=== PATIENT | female | born 1965 | race Caucasian/White ===

== ENCOUNTER → 2018-08-02 | Outpatient (CLI) | payer BC ==
[~2018-08-02] MED LIST: NORCO 5-325 TA1 EACH PO
== END ==
LOC: MRI 08-01 09:03
DX: C50.912 Malignant neoplasm of unspecified site of left female breast (principal); R92.2 Inconclusive mammogram; N60.01 Solitary cyst of right breast; R59.9 Enlarged lymph nodes, unspecified

== ENCOUNTER 2018-08-12 05:28 | Day surgery (SDC) | payer BC ==
[~2018-08-12] VITALS: Ht 162.6 cm; Wt 72.1 kg
[~2018-08-12 05:28] MED LIST changes: +CELEXA20 MG PO; +OMEPRAZOLE 20 M20 M1 PO; +TRAMADOL 50 MG50 MG PO; +ZANAFLEX4 MG PO
[2018-08-12 07:58] VITALS: BP 130/80
[2018-08-12] MEDS ORDERED: NORCO 7.5-3251 EACH PO (09:45)
[2018-08-12 10:07] VITALS: BP 130/80
--- NOTE | 2018-08-23 12:05 | PATH ---
[facility] [address] [place] [address] PATHOLOGY RPT PROCEDURE Name: AIMEDESIREELuiz AYALA Room #: DEP [facility] M.R.#: [id number] ������������������ Admission: 08/12/18 ������������������ Date of : 61 Discharge: 08/12/18 Report #: [id number] Path Case #: [id number] [facility] Accession Number: [id number] . 01 Material submitted: . axilla - LT AXILLA. Modifiers: left . 01 Clinical history: . Suspicious axillary node . 02 Diagnosis: Lymph node, axilla (suspicious node), needle core biopsy: - POSITIVE FOR MALIGNANCY; CONSISTENT WITH METASTATIC CARCINOMA (PLEASE SEE COMMENT). - No definite extracapsular extension identified. (IUV:pily; 08/13/2018) MBR/08/13/2018 . 02 Comment: Examination shows a gland forming malignancy, consistent with an adenocarcinoma. Background lymphoid tissue is present consistent with sampling of a lymph node. Definite extracapsular extension is not identified. Previous history of left breast mass with invasive carcinoma is noted ([id number]). The case is discussed with Dr. Neno Limon in the morning of 08/13/18 at which time he notified that the breast mass was ER and AL negative, as well as HER2/bia positive. There are no slides available for morphological comparison at our institution (case sent to [facility] upon request). The case is discussed with Dr. Francisco Leon as well at 12:57 p.m. on 08/13/18. Block A2 is sent for ER, AL, and HER2/bia subsequent to the discussion. Please refer to a separate addendum to follow upon receipt. . Co-review: Dr. Kianna Menjivar (slide A2-level 5). . (IUV:precision grinder external; 08/13/2018) . 02 Addendum: . Special studies report received from [facility], [address] [place] [address], [address], [place], [address], on case [id number], labeled with their number [id number], dated 08/22/2018. . Breast/Prognostic Marker Analysis . Specimen Site: Lt Axilla Lymph Node, Metastatic Carcinoma (Biopsy) Specimen ID #: [id number] . ER (Estrogen Receptor) [address] [address] PATHOLOGY RPT PROCEDURE Name: DESIREE GAINES Room #: DEP [facility] M.Urban#: [id number] ������������������ Admission: 08/12/18 ������������������ Date of : 61 Discharge: 08/12/18 Report #: [id number] Path Case #: [id number] Absent/Negative Percent: 0.50% Analysis: Manual Comments: Staining intensity: Weak . AL (Progesterone Receptor) Absent/Negative Percent: 0.00 Analysis: Manual Comments: Adequate external positive control is noted. Internal positive control not seen but tissue is adequate for evaluation. . HER2 Over-Expressed Score: 3+ Analysis: Manual . Time to Fixation (Cold Ischemic Time): Not Provided Duration of Fixation: Not Provided Type of Fixative: 10% Neutral Buffered Formalin . at [facility]. Nichole Espinoza M.D. Pathologist . Methodology The HER2 Receptor protein expression is analyzed using the Shafer HER2 rabbit monoclonal antibody (clone [id number]). This assay is used for diagnostic determination of the HER2 protein over-expression in paraffin embedded, formalin fixed breast cancer tissue on the [employer] ([employer] Benchmark. The specimen is processed using a polymer detection system. The membrane staining of the tumor is determined either by manual score or image analysis. This antibody is intended for in vitro diagnostic use. The score is reported as per package insert; 0, 1+, 2+, and 3+. This test is used for clinical purposes. . A rabbit monoclonal antibody (clone SP1) that recognized the Estrogen Receptor is used to perform immunohistochemistry on routinely fixed (formalin) paraffin embedded tissue on the Shafer Benchmark. The specimen is processed using a polymer detection system. The percentage of stained tumor nuclei is determined either manually or by image analysis. This test is intended for in vitro diagnostic use. This test is used for clinical purposes. . A rabbit monoclonal antibody (clone 1E2) that recognized the Progesterone Receptor is used to perform immunohistochemistry on routinely fixed (formalin) paraffin embedded tissue on the [employer]fer Benchmark. The specimen [address] [address] PATHOLOGY RPT PROCEDURE Name: DESIREE GAINES Room #: DEP [facility]#: [id number] ������������������ Admission: 08/12/18 ������������������ Date of : 61 Discharge: 08/12/18 Report #: [id number] Path Case #: [id number] is processed using a polymer detection system. The percentage of stained tumor nuclei is determined either manually or by image analysis. This test is intended for in vitro diagnostic use. This test is used for clinical purposes. . Intended Use: This antibody is intended for in vitro diagnostic (IVD) use. HER2 (4B5) is a rabbit monoclonal antibody intended for the semi-quantitative detection of HER2 antigen in sections of formalin-fixed, paraffin embedded normal and neoplastic tissue. . This antibody is intended for in vitro diagnostic (IVD) use. Estrogen Receptor (ER) (SP1) is a rabbit monoclonal antibody (IgG) that is intended for the qualitative detection of estrogen receptor (ER) antigen in sections of formalin-fixed, paraffin-embedded tissue. ER is a rabbit monoclonal antibody that recognizes human estrogen receptor alpha. . This antibody is intended for in vitro diagnostic (IVD) use. Progesterone Receptor (AL) (1E2) is a rabbit monoclonal antibody (IgG) that is intended for the qualitative detection of progesterone receptor (AL) antigen in sections of formalin fixed, paraffin embedded tissue. AL is a rabbit monoclonal antibody that recognizes the A and B forms of the human progesterone receptor. . . Disclaimer: This Test was performed by [facility]. at [address], [address]. . [facility] is a business unit of [employer]. a wholly-owned subsidiary of [employer]. . This assay has not been validated on decalcified tissues. Results should be interpreted with caution if this specimen was decalcified given the likelihood of false negativity on decalcified specimens. . Any image(s) that accompany this report is/are a sales support representative image(s) only and should not be used to render a diagnosis. . This interpretation is contingent on the specimen and the clinical information received. . For any special tests/stains performed, known positive cells or tissues are tested with each marker and examined to ensure positivity. Positive and negative internal controls, if present, react appropriately. . This analysis is an adjunct to the evaluation of the referring physician [address] [address] PATHOLOGY RPT PROCEDURE Name: AIMEDESIREE LUCY Room #: DEP [facility] M.R.#: [id number] ������������������ Admission: 08/12/18 ������������������ Date of : 61 Discharge: 08/12/18 Report #: [id number] Path Case #: [id number] and does not represent a final diagnosis. . The immunohistochemistry tests performed at [facility]. were validated on tissue fixed in 10% neutral buffered formalin. The performance characteristics of the tests performed on tissue processed in other fixatives is not known. . HER2 testing at [facility] is performed in compliance with the 2018 updated ASCO/CAP Clinical Practice Guideline Focused Update. If the result is EQUIVOCAL (2+), it must be confirmed by an alternative assay such as FISH or Dual SONA. REF: Joyce LEDBETTER, RAYMON Acuna et al: Human Epidermal Growth Factor Receptor 2 Testing in Breast Cancer: ASCO/CAP Clinical Practice Guideline Focused Update. J Clin Oncol 36:3007-0756, 2018. . HER2 and ER/AL ASCO/CAP guidelines require fixation in neutral buffered formalin for a minimum of 6 and a maximum of 72 hours. Fixation times less than 6 hours may not adequately preserve cell proteins. Fixation times longer than 72 hours may cause excess cross-linking of proteins reducing the antigen available for staining. Either scenario can cause reduced staining; hence false negative results are possible and should be considered for these situations if the HER2 IHC score is less than 3+ or ER or AL is negative (no staining or <1% positive). It is recommended that specimens fixed longer than 72 hours with HER2 IHC scores less than 3+ be confirmed by HER2 FISH or Dual SONA. The time from biopsy/excision to fixation in formalin (cold ischemic time) must be less than 1 hour. Time to fixation (cold ischemic time) greater than 1 hour should be interpreted with caution. HER2 testing, mainly HER2 by FISH, is particularly vulnerable since excessive cold ischemic time results in preferential loss of HER2 probe signals that may lead to false negative results. . SCORE STAINING PATTERN IN TUMOR CELLS INTERPRETATION RESULTS 0 No staining observed or incomplete, faint membrane staining in less than or equal to 10% of tumor cells. Negative 1+ Incomplete, faint membrane staining in greater than 10% of tumor cells. Negative 2+ Weak to moderate complete membrane staining observed in greater than 10% of tumor cells. Equivocal* *Must be confirmed by alternative assay (IHC/FISH/Dual SONA) 3+ Intense, complete membrane staining in greater than 10% of tumor cells. Positive [facility] [address] [place] [address] PATHOLOGY RPT PROCEDURE Name: DESIREE GAINES LUCY Room #: DEP [facility] Giselle#: [id number] ������������������ Admission: 08/12/18 ������������������ Date of : 61 Discharge: 08/12/18 Report #: [id number] Path Case #: [id number] . A complete copy of the report is on file. . Professional and Technical services performed by [facility]. at [address], [place] [address]. . (AMJ 08/22/2018) LBQ/08/22/2018 Addendum Electronically Signed by Reva Randhawa MD, Pathologist . 02 Electronically signed: . Reva Randhawa MD, Pathologist NPI- [id number] . 01 Gross description: . The specimen is received in formalin, labeled "Desiree Aime, left axilla". Received are two needle cores of pale jameson soft tissue ranging in length from 1.3 to 1.4 cm in length by 0.1 cm in diameter. The specimen is submitted entirely in cassette A1 and A2. A portion of the specimen is received in RPMI solution and is forwarded on for flow cytometry studies. (CAA; 08/12/2018) QAC/QAC . 02 Pathologist provided ICD-10: C77.3, Z85.3 . 02 CPT . 358359 Specimen Comment: A courtesy copy of this report has been sent to Specimen Comment: [phone], . Specimen Comment: Report sent to / DR TUCKER Performed at: [address], [place], [place] [id number] MD Marquis Lee MD Phone: [phone] Performed at: [address] [id number] MD Reva Randhawa MD Phone: [phone]
--- NOTE | 2018-09-26 17:32 | O ---
[facility] [place] [address] OPERATIVE REPORT Name: HELADIO GAINES Room #: DEP [facility]..#: [id number] Admission: 08/12/18 ������������������ Attend Phys: Neno Limon MD Discharge: 08/12/18 ������������������ Date of : 61 Report #: [id number] THIS REPORT FOR: //name// CC: DR GARRETT Costa DATE OF SERVICE: 08/12/2018 PREOPERATIVE DIAGNOSIS: Recently diagnosed left breast cancer, advanced stage and HER2 positive. POSTOPERATIVE DIAGNOSIS: Recently diagnosed left breast cancer, advanced stage and HER2 positive. PROCEDURE PERFORMED: Port-A-Cath placement via subclavian vein approach. COMPLICATIONS: None. ESTIMATED BLOOD LOSS: 5 mL. SURGEON: Neno Limon M.D. DESCRIPTION OF PROCEDURE: With the patient under IV sedation, IV antibiotic was administered. The right chest and neck were prepped and draped in sterile fashion. Timeout was performed. A 0.25% Marcaine was used to anesthetize the skin and subcutaneous tissue. The patient tolerated the injection well. A 2.5 cm incision was made underneath the right clavicle. The pocket for the port was created with cautery without difficulty right above the pectoralis fascia. The pocket was big enough for the port. This was tested out. With the patient then placed in the Trendelenburg position, the subclavian vein was cannulated without difficulty on the first pass. Wire was threaded through the needle without resistance. On fluoroscopy, the wire was going down to the right direction of the inferior vena cava. The patient was then flattened out. She was taken out of the Trendelenburg position. The port was then fitted to the catheter at 17.5 cm length. The supplied locking plastic piece was used to seal the catheter on the port. The port catheter was then flushed with heparinized saline. Dilator was then placed over the wire. The Peel-Apart sheath was then placed over the dilator. The dilator and the Peel-Apart sheath was placed over the wire. The dilator and wire were removed. When I put the catheter in, there is some resistance rounding the clavicle. This was then dilated with the dilator without difficulty. The catheter was then able to be threaded beyond this point. The Peel-Apart sheath was peeled apart leaving the catheter in the vein. The port was then placed in the pocket. Antibiotic was used to flush out the cavity, was used to flush out the port site. On fluoroscopy, the port and the [facility] [address] [place] [address] OPERATIVE REPORT Name: HELADIO GAINES Room #: DEP [facility].#: [id number] Admission: 08/12/18 ������������������ Attend Phys: Neno Limon MD Discharge: 08/12/18 ������������������ Date of : 61 Report #: [id number] catheter are in excellent position. The port was then sewn to the pectoralis fascia using 2-0 Prolene x 2. Subcutaneous tissue was closed with 3-0 PDS. Skin was closed with 5-0 PDS running subcuticular fashion. Steri-Strips applied. The port was then accessed without difficulty using the supplied Jain needle. Good blood return. The port was then flushed with heparinized saline solution. The patient tolerated the procedure well and was taken to the recovery room. Post-placement chest x-ray looks like a catheter and port are in excellent position. No pneumo seen. ��������������������������������������������� <ELECTRONICALLY SIGNED> ���������������������������������������� By: Neno Limon MD ��������������������������������������������� 09/26/18 1732 1251 1321 Neno Limon MD /nt
== END 2018-08-12 15:00 | disposition home or self-care (01) ==
LOC: TBA 05:28 → OR 05:28 → TBA 05:29 → OR 10:02
DX: Z45.2 Encounter for adjustment and management of vascular access device (principal); C50.912 Malignant neoplasm of unspecified site of left female breast; C77.3 Secondary and unspecified malignant neoplasm of axilla and upper limb lymph nodes; J45.998 Other asthma; F32.9 Major depressive disorder, single episode, unspecified; G47.30 Sleep apnea, unspecified; K21.9 Gastro-esophageal reflux disease without esophagitis; F17.210 Nicotine dependence, cigarettes, uncomplicated; Z17.0 Estrogen receptor positive status [ER+]; Z90.49 Acquired absence of other specified parts of digestive tract; Z98.890 Other specified postprocedural states; Z79.899 Other long term (current) drug therapy; Z88.0 Allergy status to penicillin; Z88.2 Allergy status to sulfonamides; Z88.8 Allergy status to other drugs, medicaments and biological substances; Z79.891 Long term (current) use of opiate analgesic
CPT/HCPCS: 50010; 50101; 50386; 50403; 51938; 56524; 56525; 62110; 62900; 70005

== ENCOUNTER 2019-01-09 06:53 | Observation (INO) | payer BC ==
[~2019-01-09] VITALS: Ht 167.6 cm; Wt 74.4 kg
[~2019-01-09 06:53] MED LIST changes: +ACYCLOVIR 800800 MG PO; +HYDROCODON-ACE1 EAC5 PO; +NORCO 7.5-3251 EACH PO; +OMEPRAZOLE40 MG PO
[2019-01-09 10:09] VITALS: BP 137/69
[2019-01-09 19:19] VITALS: BP 146/79
--- NOTE | 2019-01-09 20:00 | NUR ---
PATIENT ADMITTED FROM OR, BILATERAL MODIFIED RADICAL MASTECTOMY/DR OSBORNE. UP WITH ASSIST TO BATHROOM X 4. NO C/O NAUSEA THIS SHIFT. HEART HEALTHY DIET, TOLERATED WELL. DRESSINGS TO BILATERAL CHEST AREAS, [address], LEFT SIDE 60CC AND RIGHT SIDE 35CC. LIMB ALERT ON LEFT SIDE, LYMPH NODESD REMOVED. PATIENT HAS 2 IVS RIGHT WRIST AND RIGHT FOREARM, WITH D51/2 NS WITH 20 KCL AT 80CC/HR. PATIENT C/O PAIN /, RECEIVED FENTANYL 50MCG X 3 TIMES THIS ASHIFT. ADMISSION COMPLETED, BUT CAREPLAN WILL BE DONE BY EMILIE/RN. O2 AT 2 LITERS/NC UPON ARRIVAL TO THE UNIT, BUT REMOVED, NO SOB, SATS 100%. WILL CONTINUE TO MONITOR.
[2019-01-10 00:07] VITALS: BP 137/71
[2019-01-10 04:50] VITALS: BP 141/64
[2019-01-10 05:51] LABS: HEMATOCRIT 32.5 % (37.0-47.0); HEMOGLOBIN 10.9 gm/dL (12.0-15.0); MCH 35.9 pg (26.0-34.0); MCHC 33.5 g/dL (28.0-37.0); MCV 107.3 fL (80.0-100.0); RBC 3.02 mil/uL (4.20-5.00); RDW 14.5 % (10.5-14.5); WBC 8.2 thou/uL (4.0-11.0)
[2019-01-10 06:05] LABS: CALCIUM 8.7 mg/dL (8.5-10.1); CREATININE 0.5 mg/dL (0.6-1.0); POTASSIUM 3.9 mmol/L (3.5-5.1)
--- NOTE | 2019-01-10 06:07 | NUR ---
ASSUMED CARE OF PT @1900 PT ASSESSED AT START OF SHIFT. A&OX4 WITH C/O OF PAIN. PAIN MEDS GIVEN SEE EMAR. ANETA ART INTACT IN BOTH UPPER EXTREMITES. DTR AT BEDSIDE FOR THE NIGHT. PT UP WITH ASSIT TO THE BR. CARE PLANS UPDATED IV INTACT AND FLUIDS INFUSING. FALL PREC IN PLACE AND CALL LIGHT WITHIN REACH WILL CONT WITH POC TILL EOS.
[2019-01-10 07:45] VITALS: BP 132/72
[2019-01-10] MEDS ORDERED: HYDROCODON-ACE1 EAC5 PO (09:49)
--- NOTE | 2019-01-10 10:28 | NUR ---
ASSESSMENT-PT LIVES AT HOME AND HAS 3 KIDS AND XIANG THAT CAN ASSIST HER. PRIOR TO SURGERY PT WAS INDEPENDENT OF ADLS AND AMBULATION. LAYNDRY LOCATED DOWN 12 STEPS IN BASEMENT BUT KIDS OR XIANG CAN DO THIS. NURSING TO TEACH PT HOW TO EMPTY ANETA DRAINS AND TO RECORD OUTPUT ON BOTH DRAINS FOR DR OSBORNE. PT/FAMILY IDENTIFY NO DC NEEDS AT THIS TIME. FOLLOWING TO ASSIST WITH DC PLANNING.
[2019-01-10 11:59] VITALS: BP 132/72
--- NOTE | 2019-01-10 12:21 | EKG ---
[address] [address] ELECTROCARDIOGRAM REPORT Name: HELADIO GAINES Room #: 438-P [facility]..#: [id number] Admission: 01/09/19 Attend Phys: Neno Limon MD Discharge: Date of : 61 Report #: [id number] THIS REPORT FOR: //name// [facility] Test Date: 2019-01-09 Test Time: 07:16:58 Pat Name: HELADIO GAINES Department: Room: [facility] Gender: F Fur Machine Operator: Monique : 1965 Requested By: Neno Limon Order Number: [id number] MD: Edgardo Cowart Measurements Intervals [place] Rate: 75 P: 80 CA: 151 QRS: 63 QRSD: 93 T: 48 QT: 415 QTc: 464 Interpretive Statements Sinus rhythm Consider right atrial enlargement No previous ECG available for comparison Electronically Signed On 01-10-2019 12:21:09 MANAGER OF TRAINING by Edgardo Cowart [email or web address] <ELECTRONICALLY SIGNED> By: Edgardo Cowart MD 01/10/19 1221 0716 0716 Edgardo Cowart MD /EPI
--- NOTE | 2019-01-10 13:25 | NUR ---
ASSUMED CARE OF PATIENT AT 0715, PATIENT C/O PAIN WITH LEFT UPPER ARM, HYDROCODONE 1 TABLET GIVEN, WITH GOOD RELIEF. PATIENT HAS RIGHT WRIST IV AND RIGHT FOREARM IV WITH D51/2 NS WITH 20 KCL AT 80CC/HR. PATIENT RECEIVED 1 IV ANTIBIOTIC/LEVOFLOXACIN. PATIENT HAS BILATERAL BREAST DRESSING IN PLACE, C/D/I, WITH [address]. THIS RN INSTRUCTED THE PATIENT AND HER FRIEND ON HOW TO EMPTY ANETA DRAINS, THEY BOTH VERBALIZE UNDERSTANDING, LEFT SIDE ANETA DRAIN EMPTIED 30CC AND RIGHT SIDE ANETA DRAIN 10CC. BOTH IV'S DISCONTINUED PRIOR TO DISCHARGE. THIS RN WENT OVER ALL DISCHARGE PAPERWORK AND ALL PERSONAL BELONGINGS SENT WITH THE PATIENT. DAUGHTER AT BEDSIDE FOR TRANSPORT TO HOME.
--- NOTE | 2019-01-16 16:06 | PATH ---
[facility] [place] [address] PATHOLOGY RPT PROCEDURE Name: DESIREE SALOMON Room #: 438-P [facility] Eugenia M.RАлександр#: [id number] Admission: 01/09/19 Date of : 61 Discharge: 01/10/19 Report #: [id number] Path Case #: [id number] [facility] Accession Number: [id number] . 01 Material submitted: . PART A: breast - LEFT BREAST TISSUE, SHORT STITCH SUPERIOR, LONG STITCH LATERAL. Modifiers: left PART B: lymph node - LEFT HIGH AXILLARY NODE. Modifiers: left PART C: breast - RIGHT BREAST TISSUE. Modifiers: right . 01 Clinical history: . Malignant neoplasm of breast unspecified site, female . 02 Diagnosis: A. Breast, left breast tissue, modified radical mastectomy: - No residual neoplasm present (entire upper central quadrant submitted for microscopic examination) (y pT0). - Background breast tissue showing fibroadenomatoid changes, stromal fibrosis, adenosis, marked dilated ducts along with usual ductal hyperplasia and scattered coarse calcifications. - Skin and nipple with reactive changes; negative for malignancy. - Seventeen reactive lymph nodes (one with previous biopsy site changes identified at marked area); negative for malignancy (0/17). . B. Lymph node (one), left high axillary lymph node, biopsy: - Reactive lymph node; negative for malignancy (0/1). . C. Breast, right breast, modified radical mastectomy: - Proliferative fibrocystic changes with dilated ducts, stromal fibrosis, as well as focal adenosis. - Negative for hyperplasia, atypia or malignancy. - Skin and nipple with reactive changes; negative for malignancy. - 11.0 cm of attached axillary tail showing predominantly fatty tissue (please see comment). (IUV:pit; 01/15/2019) . Surgical Pathology Cancer Case Summary . Protocol posting date: March 2017 . INVASIVE CARCINOMA OF THE BREAST: . . Specimen Identification Procedure ___ Modified Radical Mastectomy . Specimen Laterality [address] [address] PATHOLOGY RPT PROCEDURE Name: DESIREE SALOMON Room #: 438-P [facility] Eugenia Desai#: [id number] Admission: 01/09/19 Date of : 61 Discharge: 01/10/19 Report #: [id number] Path Case #: [id number] ___ Left . Tumor Site: Invasive Carcinoma ___ Position (specify): 12 o'clock . Tumor Size ___ No residual invasive carcinoma . Histologic Type ___ No residual invasive carcinoma . Histologic Grade (Charlie Histologic Score) ___ No residual invasive carcinoma . Tumor Focality ___ Cannot be determined . Ductal Carcinoma In Situ (DCIS) ___ Not identified . Tumor Extension Skin ___ None . Nipple ___ None . Margins . Invasive Carcinoma Margins (required only if residual invasive carcinoma is present in specimen) ___ Cannot be assessed; no residual carcinoma . DCIS Margins (required only if DCIS is present in specimen) ___ Cannot be assessed; no residual DCIS . Regional Lymph Nodes . ___ Uninvolved by tumor cells Number of Lymph Nodes Examined: 18 . Treatment Effect . Treatment Effect in the Breast ___ No residual invasive carcinoma is present in the breast after presurgical therapy . Treatment Effect in the Lymph Nodes [address] [address] PATHOLOGY RPT PROCEDURE Name: LIANADESIREE LUCY Room #: 438-P [facility] Eugenia АлександрАлександр#: [id number] Admission: 01/09/19 Date of : 61 Discharge: 01/10/19 Report #: [id number] Path Case #: [id number] ___ No lymph node metastases. Fibrous scarring, possibly related to prior lymph node metastases with pathologic complete response . Lymphovascular Invasion ___ Not identified . Dermal Lymphovascular Invasion ___ Not identified . Pathologic Stage Classification (pTNM, AJCC 8th Edition) Note: Reporting of pT, pN, and (when applicable) pM categories is based on information available to the pathologist at the time the report is issued. . TNM Descriptors (required only if applicable) (select all that apply) ___ y (posttreatment) . Primary Tumor (Invasive Carcinoma) (pT) ___ pT0: No evidence of primary tumor . Category (pN) ___ pN0: No regional lymph node metastasis identified . Clinical History ___ Prior presurgical (neoadjuvant) therapy for this diagnosis of invasive carcinoma QMS 01/15/2019 1741 Local . 02 Comment: The original biopsy which showed an invasive moderately differentiated ductal adenocarcinoma, Charlie grade II, was sampled at [facility] ([id number]; please see separate report for details). That tumor was negative for ER, AR, over expressed HER-2/JESENIA and showed a Ki-67 proliferation rate of 37.77%. Subsequently a left axillary lymph node was sampled which was positive for metastatic carcinoma ([id number]; please see separate report for details). That lymph node was also submitted for breast prognostic marker analysis and it was negative for ER and AR. It overexpressed HER-2/JESENIA. The entire upper central quadrant is submitted for microscopic examination and it shows no residual tumor. Therapy related reparative changes are identified. Properly controlled immunohistochemical stains are performed on blocks A8 and A11 and are interpreted as follows: AE1/AE3 on block A8 and A11 - no reactivity identified within the therapy related changes identified consistent with no residual invasive carcinoma. CD68 performed on block A8 and A11 - numerous macrophages present within therapy related changes consistent with reactive/reparative changes. . Both the original biopsies have been retrieved for morphologic comparison [facility] [address] [place] [address] PATHOLOGY RPT PROCEDURE Name: LIANADESIREELuiz AYALA Room #: 438-P [facility] Eugenia Desai#: [id number] Admission: 01/09/19 Date of : 61 Discharge: 01/10/19 Report #: [id number] Path Case #: [id number] and no residual tumor is identified. . The axillary fat from the right modified radical mastectomy is submitted/placed in dissect aid to identify any microscopic lymph nodes. An addendum will be issued subsequent to reviewing the same. (IUV:pit; 01/15/2019) . 02 Addendum: . ADDITIONAL GROSS DESCRIPTION . C. After initial microscopic examination, the axillary tail of the right breast is placed into a lymph node enhancement solution overnight. Upon 24 hours of exposure to a lymph node enhancement solution, extensive dissection and palpation of the axillary tail reveals no identifiable lymph nodes. (CAA; 01/15/2019) QTP/01/16/2019 Addendum Electronically Signed by Reva Randhawa MD, Pathologist . 02 Electronically signed: . Reva Randhawa MD, Pathologist NPI- [id number] . 01 Gross description: . A. The specimen is received in formalin, labeled "Desiree Salomon, left breast tissue". Received is a 467 g mastectomy specimen oriented with a short suture designating the superior margin and a long suture designating the lateral margin. The specimen measures 19.7 cm from medial to lateral, 18.5 cm from superior to inferior, and 3.0 cm from anterior to posterior. The anterior aspect of the specimen displays an attached ellipse of skin measuring 8.5 x 5.0 cm with an eccentrically located everted nipple and areola complex, measuring 1.0 x 0.8 and 3.0 x 2.8 cm, respectively. There is an attached axillary tail measuring 14.2 x 4.0 x 1.4 cm. The specimen is inked as follows: Superior/anterior-blue, inferior/anterior-green, posterior-black, medial skin tip-orange, lateral skin tip-yellow. Sectioning reveals bright yellow, lobulated to white, fibrous cut surfaces, with the fibrous tissue encompassing approximately 20% of the specimen and is located in the upper inner and lower inner quadrants. This fibrous tissue extends 1.2 cm lateral to the 12:00 margin, 3.8 cm medial to the 12:00 margin, and 5.8 cm inferior to the 12:00 margin. No distinct nodules or lesions are noted grossly. Dissection and palpation of the axillary tail reveals 16 readily identifiable lymph nodes ranging in size from 0.3 to 1.8 cm. There is a slight amount of blue ink on the axillary tail designating a specific lymph node. . Also received within the specimen container is a segment of yellow-jameson fibroadipose tissue measuring 2.3 x 1.2 x 0.8 cm with an attached staple. Sectioning reveals a single lymph node measuring 1.4 cm in maximum [address] [address] PATHOLOGY RPT PROCEDURE Name: DESIREE SALOMON Room #: 438-P [facility] Eugenia Desai#: [id number] Admission: 01/09/19 Date of : 61 Discharge: 01/10/19 Report #: [id number] Path Case #: [id number] dimensions. . A1 perpendicular section through nipple A2-A12 most lateral aspect of central upper quadrant (approximate 1:00 aspect) from most superior aspect down to the nipple/areolar complex, with some sections bisected and trisected A13-A24 slice medial to slice submitted in cassettes A2 through A12 of central upper quadrant from most superior aspect down to the nipple/areolar complex, with some sections bisected and trisected A25-A36 slice medial to slice submitted in cassettes A13 through A24 of central upper quadrant (approximate 12:00 aspect) from most superior aspect down to nipple/areolar complex, with some sections bisected and trisected A37-A48 slice medial to slice submitted in cassettes A25 through A26 of central upper quadrant (approximate 12:00 aspect) from most superior aspect down to nipple/areolar complex, with some sections bisected and trisected A49-A58 slice medial to slice submitted in cassettes A37 through A48 of central upper quadrant from most superior aspect down to nipple/areolar complex, with some sections bisected and trisected A59-A68 most medial aspect of central upper quadrant (approximate 11:00 aspect) from most superior aspect down to the nipple/areolar complex, with some sections bisected and trisected A69 upper inner quadrant A70 lower inner quadrant A71 lower outer quadrant A72 upper outer quadrant A73 lymph node designated by ink and axillary tail, bisected A74-A75 intact lymph nodes from axillary tail A76-A77 two bisected lymph nodes from axillary tail in each cassette, one of which is differentially inked A78-A79 one bisected lymph node from axillary tail in each cassette A80 single lymph node from separately submitted segment of fibroadipose tissue, bisected. . The cold ischemic time is 18 minutes. The total formalin fixation time is 34 hours and 44 minutes. . Please see attached photographs for diagram of how sections are submitted for the central upper quadrant. . B. The specimen is received in formalin, labeled "Desiree Salomon, left high axillary node". Received are two segments of bright yellow lobulated tissue measuring 1.8 x 1.6 x 0.6 cm in aggregate dimensions. Dissection and palpation of the specimen reveals a single lymph node measuring 1.1 cm in maximum dimensions. The lymph node is bisected and entirely submitted in cassette B1. . [facility] [address] [place] [address] PATHOLOGY RPT PROCEDURE Name: DESIREE SALOMON Room #: 438-P [facility]#: [id number] Admission: 01/09/19 Date of : 61 Discharge: 01/10/19 Report #: [id number] Path Case #: [id number] C. The specimen is received in formalin, labeled "Desiree Salomon, right breast tissue". Received is a 298 g unoriented mastectomy specimen measuring 13.1 x 12.1 x 4.4 cm in greatest dimensions. The anterior aspect of the specimen displays an attached ellipse of skin measuring 9.1 x 4.2 cm with a centrally located, everted nipple and areolar complex, measuring 1.3 x 1.1 and 3.2 x 2.9 cm, respectively. There is an attached possible axillary tail measuring 11.0 x 4.9 x 2.1 cm. The specimen is inked as follows: Anterior-blue, posterior-black. The specimen is oriented using the attached possible axillary tail. Sectioning reveals bright yellow fibrofatty cut surfaces throughout, with the fibrous tissue encompassing approximately 8% of the specimen, which is located predominantly in the upper outer and lower outer quadrants. A single cystic structure is identified within the fibrous tissue measuring 0.6 cm filled with clear fluid, which is located along the junction of quadrants 1 and 2. Dissection and palpation of the attached possible axillary tail reveals bright yellow, lobulated cut surfaces with no grossly distinct lymph nodes, nodules, or lesions. The specimen is submitted representatively as follows: . C1 perpendicular section through nipple C2 entire cystic structure C3 lower outer quadrant C4 lower inner quadrant C5 upper inner quadrant C6 upper outer quadrant. . The cold ischemic time is 6 minutes. The total formalin fixation time is 34 hours and 11 minutes. (CAA; 01/10/2019) QAC/QAC 01/10/2019 1141 Local . 02 Pathologist provided ICD-10: N60.11, N60.32, N60.22, N62, N60.12, N60.31, N60.21 . 02 CPT . 398066, 277967, G71858, G17262 Specimen Comment: A courtesy copy of this report has been sent to [phone], [phone] Specimen Comment: [id number] Specimen Comment: Report sent to / DR TUCKER Performed at: [address], [place] [id number] MD Marquis Lee MD Phone: [phone] Performed at: [address] [id number] MD Reva Randhawa MD Phone: [phone]
--- NOTE | 2019-01-21 12:03 | H ---
[facility] [place] [address] [place] [address] HISTORY AND PHYSICAL Name: HELADIO GAINES Room #: 438-P [facility] Eugenia Desai#: [id number] Admission: 01/09/19 Attend Phys: Neno Limon MD Discharge: 01/10/19 Date of : 61 Report #: [id number] THIS REPORT FOR: //name// CC: Neno Costa MD PREOPERATIVE DIAGNOSIS: The patient with HER-2 positive 3-4 cm left breast adenocarcinoma with positive lymph node, who has finished a course of neoadjuvant chemotherapy, now here for bilateral mastectomy. HISTORY OF PRESENT ILLNESS: The patient is a 53-year-old who was diagnosed with breast cancer after she noticed a mass in June. The patient had a mammogram and ultrasound at [facility] in July, which was highly suspicious. The patient then underwent a biopsy. This came back with an ER and DE negative breast cancer with HER-2 positive. The patient had an MRI performed, which did estimate the tumor at 3.6 cm x 1.5 x 3.8 cm in a spiculated form. Skin and nipples were unremarkable. The patient has suspicious lymph node and the patient did undergo biopsy and the biopsy was positive. There were at least a couple of nodes that were suspicious. The patient underwent neoadjuvant chemotherapy. She will be continued on Herceptin and she is recommended to proceed with breast cancer surgery. Because of the aggressive nature of her left breast cancer, the patient has chosen to have her right breast removed in the fear of having a right breast cancer in the future. The patient is here for left modified radical mastectomy and right prophylactic mastectomy. PAST MEDICAL HISTORY: She has a history of arthritis, back pain, and decreased vision. PAST SURGICAL HISTORY: Appendectomy, performed by myself in 2016; ; history of tubal ligation. FAMILY HISTORY: Father with colon cancer. History of high blood pressure in the family. Maternal grandmother had lung cancer. Paternal grandmother had ovarian cancer. SOCIAL HISTORY: She is a . The patient smokes 1 pack a day. The patient occasionally does drink alcohol, but not very significantly. MEDICATIONS: Include Celexa, Bentyl, hydrocodone, omeprazole, Zanaflex, Ultram. ALLERGIES: INCLUDE SULFA, PENICILLIN AND MORPHINE. PHYSICAL EXAMINATION: GENERAL: The patient is a middle-aged female in no acute distress. HEENT: Pupils react to light. Extraocular muscles are intact[place] [address] HISTORY AND PHYSICAL Name: HELADIO GAINES Room #: 438-P [facility]#: [id number] Admission: 01/09/19 Attend Phys: Neno Limon MD Discharge: 01/10/19 Date of : 61 Report #: [id number] clear. NECK: Soft and supple, no JVD, no masses. LUNGS: Clear to auscultation. HEART: Regular rate and rhythm. No murmur or gallop. ABDOMEN: Soft, nondistended, nontender. BREASTS: The tumor previously identified in the medial part of the left upper outer quadrant is barely palpable. There is an area of thickening, but the tumor is very difficult to palpate as distinct mass. There is a node that is palpable in the left axilla. Right breast does not show any mass or skin changes. No axillary adenopathy on the right side. EXTREMITIES: No cyanosis, clubbing or edema. Motor and sensory exam normal. IMPRESSION: The patient is a 53-year-old with an aggressive breast cancer on her left side. This was HER-2 positive and the size is close to 4 cm. The patient has had excellent response to neoadjuvant chemotherapy. The patient is now ready to proceed with left modified radical mastectomy. Because of her aggressive tumor, the patient has decided to minimize her risk of recurrence and also having a second primary develop in the right breast by choosing right prophylactic mastectomy. The patient understands the procedure, risk of bleeding, infection, and placement of drain. The patient's recovery course is also discussed. <ELECTRONICALLY SIGNED> By: Neno Limon MD 01/21/19 1203 11 42 Neno Limon MD /nt
--- NOTE | 2019-01-21 12:03 | O ---
[facility] [place] [address] [place] [address] OPERATIVE REPORT Name: HELADIO GAINES Room #: 438-P [facility] Giselle#: [id number] Admission: 01/09/19 Attend Phys: Neno Limon MD Discharge: 01/10/19 Date of : 61 Report #: [id number] THIS REPORT FOR: //name// CC: Neno Costa DATE OF SERVICE: 01/09/2019 PREOPERATIVE DIAGNOSIS: Left breast cancer, advanced stage, status post neoadjuvant chemotherapy. POSTOPERATIVE DIAGNOSIS: Left breast cancer, advanced stage, status post neoadjuvant chemotherapy. PROCEDURES PERFORMED: 1. Left modified radical mastectomy. 2. Right total mastectomy. SURGEON: Neno Limon MD ANESTHESIA: General anesthesia. COMPLICATIONS: None. ESTIMATED BLOOD LOSS: 100 mL. PROCEDURE NOTE: With the patient under general anesthesia, timeout was performed. The patient did receive preoperative IV antibiotics. Both breasts and axilla were prepped and draped in sterile fashion. The patient's tumor is about 12:30 position 4 cm from the nipple. This is no longer palpable, but there is some thickening in this area. The skin over this was marked. An ellipse was then drawn at the central part of the breast. The ellipse included the skin that was previously drawn right over the site of the tumor. The incision was made. The dissection was carried out freeing the skin from subcutaneous tissue. The upper skin flap was then created above the superficial fascial layer of the breast, left about 4-5 mm skin flap. The dissection was carried superiorly. The patient's breasts are relatively small. The breast stopped about an inch and a half below the clavicle. The dissection carried down to the chest wall. The inferior skin flap was then created. The medial skin flap was also dissected free. Clips were applied for hemostasis. The breast was then taken off the chest wall. There was no tumor along the dissection of the edges. Once the breast was free, the axilla was identified. The pectoralis muscle was pulled medially. The blood supply to the pectoralis coming in laterally was preserved. The patient did have previously biopsy positive lymph node. The nodes are minimally palpable, nothing suspicious. The left subclavian vein was identified. The vein was followed to the chest wall, [address] [address] OPERATIVE REPORT Name: HELADIO GAINES Room #: 438-P [facility] Eugenia Desai#: [id number] Admission: 01/09/19 Attend Phys: Neno Limon MD Discharge: 01/10/19 Date of : 61 Report #: [id number] followed proximally and the highest lymph node was removed. The fatty tissue was then swept off of the axillary vein. The first venous branch to the vein was isolated, clipped x 2 proximally and 1 distally, and then divided. The second pedicle containing the thoracodorsal nerve and artery, this was preserved. The first large intercostal nerve branch was safe. The second one was going to be more of the central part of the lymph node, this was removed. Clipped and sharply dissected. The thoracodorsal nerve and the long thoracic nerves were identified, preserved from harm. The small triangular fat tissue between the 2 nerves was dissected free. The axilla was swept downward. At the site of previous biopsy, I can feel the enlarged node, which felt soft. The axilla was marked with a marking pen over this area where I believe the previous biopsy was performed. Specimen was given to pathology with orientation. Hemostasis was checked and obtained. The axilla and breast was then packed with a single lap tape. The right mastectomy was then performed. The ellipse is slightly smaller than the left side. Dissection was carried through creating upper skin flap and the medial breast tissue was also dissected from the skin, inferiorly was dissected, again leaving the same about 4-5 mm skin flap all the way around. The breast was then taken off the chest wall. Clips were applied in the perforating vessels. Hemostasis obtained. No lymph node needs to be removed for this prophylactic side. The breast was taken off the chest wall without difficulty. A #19 Benedict drain was placed in both the mastectomy sites. The drain was brought in through a small stab incision inferolaterally. The drain was sutured with 2-0 silk suture to the skin. Subcutaneous tissue was closed with 3-0 PDS. Skin was closed with 4-0 PDS. Dermabond was used. Fluffy dressing was placed over the incisions. Tape was applied. The patient was awakened and taken to recovery room having tolerated the procedure well. <ELECTRONICALLY SIGNED> By: Neno Limon MD 01/21/19 1203 2225 Neno Limon MD /nt
== END 2019-01-10 13:43 | disposition home or self-care (01) ==
LOC: OR 06:53 → 4S 14:00 → OR 16:42 → 4S 01-10 13:43
PROVIDERS: ADMIT Surgery
DX: C50.912 Malignant neoplasm of unspecified site of left female breast (principal); Z90.49 Acquired absence of other specified parts of digestive tract; Z88.0 Allergy status to penicillin; Z88.2 Allergy status to sulfonamides; Z88.5 Allergy status to narcotic agent; Z79.899 Other long term (current) drug therapy
CPT/HCPCS: 50010; 50101; 50386; 50417; 51301; 54118; 56524; 56525; 56526; 56805; 62110; 62900; 70005

== ENCOUNTER 2019-10-08 11:06 | Emergency (ER) | payer OTHER ==
[~2019-10-08] VITALS: Ht 162.6 cm; Wt 68.0 kg
[2019-10-08 12:53] LABS: ABSOLUTE NEUTROPHILS 11.7 thou/uL (1.4-8.2); BASOPHILS 0.2 % (0.0-2.0); EOSINOPHILS 0.2 % (0.0-3.0); HEMATOCRIT 36.1 % (37.0-47.0); HEMOGLOBIN 12.3 gm/dL (12.0-15.0); LYMPHOCYTES 3.8 % (24.0-44.0); MCH 34.2 pg (26.0-34.0); MCHC 34.1 g/dL (28.0-37.0); MCV 100.6 fL (80.0-100.0); MONOCYTES 6.1 % (1.0-8.0); PLATELET COUNT 265 thou/uL (150-400); POLYS 89.7 % (36.0-66.0); RBC 3.59 mil/uL (4.20-5.00); RDW 14.2 % (10.5-14.5)
[2019-10-08 13:06] LABS: CALCIUM 9.2 mg/dL (8.5-10.1); CREATININE 0.7 mg/dL (0.6-1.0); POTASSIUM 4.2 mmol/L (3.5-5.1)
[2019-10-08 13:12] LABS: ALBUMIN 3.5 g/dL (3.4-5.0); DIRECT BILIRUBIN 0.2 mg/dL (<0.1-0.2); TOTAL BILIRUBIN 0.5 mg/dL (0.2-1.0); TOTAL PROTEIN 7.4 g/dL (6.4-8.2)
[2019-10-08] MEDS ORDERED: CLINDAMYCIN HC300 MG PO (15:28)
[2019-10-08] MEDS ORDERED: KEFLEX500 M1 PO (15:28)
[2019-10-08] MEDS ORDERED: MOBIC15 MG PO (15:28)
[2019-10-08 16:08] VITALS: BP 139/58
== END 2019-10-08 16:08 | disposition home or self-care (01) ==
LOC: ER 11:06
PROVIDERS: Emergency Medicine
DX: L03.111 Cellulitis of right axilla (principal); R11.0 Nausea; R51 Headache; R50.9 Fever, unspecified; J45.909 Unspecified asthma, uncomplicated; K21.9 Gastro-esophageal reflux disease without esophagitis; F32.9 Major depressive disorder, single episode, unspecified; C50.919 Malignant neoplasm of unspecified site of unspecified female breast; F17.210 Nicotine dependence, cigarettes, uncomplicated; Z98.890 Other specified postprocedural states; Z90.49 Acquired absence of other specified parts of digestive tract; Z79.899 Other long term (current) drug therapy; Z88.0 Allergy status to penicillin; Z88.2 Allergy status to sulfonamides; Z88.5 Allergy status to narcotic agent